=== PATIENT | male | born 1970 | race African-American/Black ===

== ENCOUNTER 2017-01-14 20:29 | Emergency (ER) | payer OTHER | END 2017-01-14 20:55 | disposition home or self-care (01) | LOC: D.ER 20:29 | DX: M54.5 Low back pain (principal); M62.830 Muscle spasm of back; S39.012A Strain of muscle, fascia and tendon of lower back, initial encounter; X58.XXXA Exposure to other specified factors, initial encounter; Y93.89 Activity, other specified; Y92.89 Other specified places as the place of occurrence of the external cause ==

== ENCOUNTER 2018-12-04 14:13 | Emergency (ER) | payer OTHER ==
[~2018-12-04] VITALS: Ht 175.3 cm; Wt 135.5 kg
[2018-12-04 15:12] VITALS: Ht 175.3 cm; Wt 135.5 kg
[2018-12-04] MEDS ORDERED: BP MED (15:13)
[2018-12-04] MEDS ORDERED: ARTHRITIS MED (15:14)
[2018-12-04] MEDS ORDERED: MUSCLE RELAXANT (15:15)
[2018-12-04 15:51] LABS: BASOPHILS 0.2 % (0-2); EOSINOPHILS 0.4 % (0-7); HEMATOCRIT 42.1 % (42.0-54.0); HEMOGLOBIN 13.9 g/dL (13.5-17.5); IMMATURE GRANULOCYTES 2.1 % (0-5); LYMPHOCYTES 18.8 % (15-50); MCH 28.7 pg (26.0-34.0); MEAN PLATELET VOLUME 11.3 fL (7.4-10.4); MONOCYTES 7.9 % (2-11); NEUTROPHILS 70.6 % (40-80); PLATELET COUNT 223 10x3/uL (130-400); RBC 4.84 10x6/uL (4.20-6.10); RDW 14.6 % (11.5-14.5); WBC 16.8 10x3/uL (4.8-10.8)
[2018-12-04 16:05] LABS: ALBUMIN 3.6 g/dL (3.4-5.0); ALKALINE PHOSPHATASE 99 U/L (46-116); ALT (SGPT) 82 U/L (10-68); BILIRUBIN - TOTAL 0.38 mg/dL (0.2-1.3); CALC OSMOLALITY 289 mosm/kg (275-300); CALCIUM 8.5 mg/dL (8.5-10.1); CARBON DIOXIDE 31.7 mmol/L (21.0-32.0); CHLORIDE - SERUM 106 mmol/L (98-107); CREATININE - SERUM 1.3 mg/dL (0.6-1.3); GLUCOSE 95 mg/dL (74-106); POTASSIUM - SERUM 3.8 mmol/L (3.5-5.1); PROTEIN - SERUM 7.5 g/dL (6.4-8.2); SODIUM 144 mmol/L (136-145); UREA NITROGEN 21 mg/dL (7-18); eGFR NON AFRICAN AMERICAN 63 mL/min (90-120)
[2018-12-04 16:07] LABS: AMYLASE - SERUM 55 U/L (25-115); LIPASE 143 U/L (73-393); TROPONIN-I < 0.017 ng/mL (0.000-0.060)
[2018-12-04 16:14] LABS: APPEARANCE CLEAR (CLEAR); BILIRUBIN NEGATIVE (NEGATIVE); COLOR YELLOW (YELLOW); GLUCOSE NEGATIVE (NEGATIVE); KETONE NEGATIVE (NEGATIVE); NITRITE NEGATIVE (NEGATIVE); PROTEIN NEGATIVE (NEGATIVE); UROBILINOGEN NORMAL (NORMAL)
[2018-12-04] MEDS ORDERED: MIRALAX17 GM PO (17:36)
[2018-12-04 19:51] VITALS: BP 145/110
== END 2018-12-04 19:51 | disposition home or self-care (01) ==
LOC: D.ER 14:13
PROVIDERS: Family Medicine
DX: K59.00 Constipation, unspecified (principal); D72.829 Elevated white blood cell count, unspecified